=== PATIENT | female | born 1935 | race Caucasian/White ===

== ENCOUNTER → 2021-08-09 | Outpatient (CLI) | payer MEDICARE, OTHER ==
[~2021-08-09] MED LIST: ADALAT CC30 MG PO; ALDACTONE25 MG PO; ALPRAZOLAM0.5 MG PO; ASPIRIN CHEWABL81 MG PO; CATAPRES 0.1MG0.1 MG PO; CATAPRES0.2 MG PO; CO Q-1010 MG PO; COREG25 MG PO; COREG6.25 MG PO; EDARBYCLOR 40-1 EACH PO; ELIQUIS2.5 MG PO; FEOSOL325 MG PO; FISH OIL DR 1,1 EAC1 PO; FUROSEMIDE40 MG PO; HYDRALAZINE HCL25 MG PO; HYDRALAZINE HCL50 MG PO; HYDROCHLOROTHIA25 MG PO; INVANZ 1 GM VIAL1 GM IM; LIPITOR TAB 2020 MG PO; PLAVIX 75 MG TA75 MG PO; PRINIVIL5 MG PO; PROBIOTIC1 EAC1 PO; PROTONIX40 MG PO; TOPROL XL50 MG PO
== END ==
LOC: EXRD 09:55
DX: J18.9 Pneumonia, unspecified organism (principal); R91.8 Other nonspecific abnormal finding of lung field
CPT/HCPCS: 71046